=== PATIENT | male | born 1985 | race African-American/Black ===

== ENCOUNTER 2025-03-08 14:22 | Emergency (ER) | payer SELFPAY ==
[2025-03-08] MEDS ORDERED: Acetaminophen 500 MG TAB ONE (15:10)
[2025-03-08] MEDS ORDERED: Ibuprofen 200 MG TAB ONE (15:10)
[2025-03-08 16:08] LABS: #Basophils 0.03 10x3/uL (0.0-0.2); #Eosinophils 0.04 10x3/uL (0.0-0.5); #Monocytes 0.90 10x3/uL (0.0-1.1); #Neutrophils 12.92 10x3/uL (1.5-8.4); %Basophils 0.2 % (0.0-2.0); %Eosinophils 0.3 % (0.0-6.0); %Lymphocytes 5.2 % (18.0-47.0); %Monocytes 6.1 % (0.0-10.0); %Neutrophils 87.5 % (40.0-75.0); Hematocrit 45.2 % (38.8-50.0); Hemoglobin 15.4 g/dL (13.5-17.5); Mean Corpuscular Hemoglobin 30.1 pg (27.0-33.0); Mean Corpuscular Volume 88.5 fL (81.2-95.1); Platelet Count 197 10x3/uL (150-450); Red Blood Cell (RBC) Count 5.11 10x6/uL (4.32-5.72); White Blood Cell (WBC) Count 14.75 10x3/uL (3.5-10.5)
[2025-03-08 16:30] LABS: ALT (SGPT) 34 U/L (Less than 45); AST (SGOT) 39 U/L (11-34); Albumin 3.7 g/dL (3.1-4.5); Alkaline Phosphatase 68 U/L (40-110); Anion Gap 14 mmol/L (10-20); BUN (Urea Nitrogen) 10 mg/dL (8.9-20.6); Bilirubin, Total 0.8 mg/dL (0.3-1.2); Calc. Creatinine Clearance 0 mL/min (70-130); Calcium 9.1 mg/dL (7.8-10.44); Carbon Dioxide 22 mmol/L (22-29); Chloride 101 mmol/L (98-107); Globulin 3.3 g/dL (2.4-3.5); Glucose 127 mg/dL (70-105); Potassium 3.3 mmol/L (3.5-5.1); Sodium 134 mmol/L (136-145)
== END 2025-03-08 17:45 | disposition home or self-care (01) ==
LOC: CSHERS 14:22
DX: J06.9 Acute upper respiratory infection, unspecified (principal); I10 Essential (primary) hypertension; E87.6 Hypokalemia; F17.290 Nicotine dependence, other tobacco product, uncomplicated
CPT/HCPCS: 36415; 71045; 80053; 83605; 85025; 87081; 87428; 87430